=== PATIENT | female | born 1990 ===

== ENCOUNTER 2018-04-26 09:44 | Outpatient (CLI) | payer OTHER ==
[~2018-04-26] VITALS: Ht 152.4 cm; Wt 72.6 kg
== END 2018-04-26 10:00 | disposition home or self-care (01) ==
LOC: OFIC 805 09:44
DX: H93.12 Tinnitus, left ear (principal); M26.69 Other specified disorders of temporomandibular joint

== ENCOUNTER 2018-05-03 09:05 | Outpatient (CLI) | payer OTHER ==
[~2018-05-03] VITALS: Ht 152.4 cm; Wt 72.6 kg
== END 2018-05-03 09:20 | disposition home or self-care (01) ==
LOC: OFIC 805 09:05
DX: H93.12 Tinnitus, left ear (principal); M26.69 Other specified disorders of temporomandibular joint

== ENCOUNTER 2018-05-03 13:25 | Outpatient (CLI) | payer OTHER | END 2018-05-03 13:39 | disposition home or self-care (01) | LOC: MRI 13:25 | DX: H93.13 Tinnitus, bilateral (principal) | CPT/HCPCS: 70552 ==

== ENCOUNTER 2018-05-10 07:31 | Outpatient (CLI) | payer OTHER ==
[~2018-05-10] VITALS: Ht 152.4 cm; Wt 72.6 kg
== END 2018-05-10 07:45 | disposition home or self-care (01) ==
LOC: OFIC 805 07:31
DX: H93.12 Tinnitus, left ear (principal); M26.69 Other specified disorders of temporomandibular joint